=== PATIENT | female | born 1940 | race African-American/Black ===

== ENCOUNTER 2022-10-23 13:18 | Emergency (ER) | payer OTHER ==
[~2022-10-23] VITALS: Ht 165.1 cm; Wt 65.0 kg
[2022-10-23 13:22] VITALS: O2SAT 100
[2022-10-23 14:21] LABS: BASOPHILS % 0.5 % (0.0-2.0); EOSINOPHILS % 1.2 % (0.0-5.0); HEMATOCRIT. 36.2 % (36.0-48.0); LYMPHOCYTES % 26.7 % (20.0-50.0); MEAN CORPUSCULAR VOLUME 97.1 fL (81.0-99.0); MONOCYTES % 7.4 % (2.0-8.0); NEUTROPHILS % 64.2 % (40.0-76.0); PLATELET 238 x1000/uL (130-400); RED BLOOD CELL COUNT 3.73 mill/uL (4.2-5.4)
[2022-10-23] MEDS ORDERED: IOHEXOL-350 100 ML BOTTLE ONE (14:22)
[2022-10-23 14:30] LABS: CHLORIDE 109 mEq/L (98-107)
[2022-10-23] MEDS ORDERED: ASPIRIN 325MG EC TABLET PO ONE (15:00)
[2022-10-23 16:00] LABS: CLARITY URINE CLEAR (CLEAR); COLOR URINE YELLOW (YELLOW); KETONES URINE TRACE (NEGATIVE); LEUKOCYTE ESTERASE URINE NEGATIVE (NEGATIVE); NITRITE URINE NEGATIVE (NEGATIVE); OCCULT BLOOD URINE NEGATIVE (NEGATIVE); PH URINE 5.5 (4.5-8.0); PROTEIN URINE TRACE (NEGATIVE); SPECIFIC GRAVITY URINE 1.021 (1.005-1.030); UROBILINOGEN URINE 0.2 E.U./dL (0.2-1.0)
[2022-10-23 16:51] LABS: PARTIAL THROMBOPLASTIN TIME 25.1 sec (23.4-31.0); PROTHROMBIN TIME 10.4 sec (9.6-11.0)
[2022-10-23 19:00] VITALS: TEMP 98.5
[2022-10-23 20:22] VITALS: BP 146/61; PULSE 69; RESP 16
== END 2022-10-23 21:17 | disposition short-term general hospital (02) ==
LOC: ER 13:22
DX: I63.9 Cerebral infarction, unspecified (principal); Z88.3 Allergy status to other anti-infective agents; Z86.73 Personal history of transient ischemic attack (TIA), and cerebral infarction without residual deficits
CPT/HCPCS: 99285; 70496; 71045; 80053; 81003; 85025; 85610; 85730; 86850; 86900; 86901; 87086; 84484; 36415; 70498; 93005; 70450; Q9967